=== PATIENT | male | born 1950 | race Caucasian/White ===

== ENCOUNTER 2016-12-30 21:56 | Observation (INO) | payer MEDICARE, OTHER ==
--- NOTE | ~2016-12-30 | EKG ---
PATIENT: LUIS ANTONIO HOLT UNIT #: [id number] Ventricular Rate: 102 BPM Atrial Rate: 102 BPM P-R Interval: 182 ms QRS Duration: 84 ms Q-T Interval: 344 ms QTC Calculation(Bezet): 448 ms P [place]: 49 degrees Calculated R [place]: 46 degrees Calculated T [place]: 47 degrees Diagnosis Line: Sinus tachycardia Diagnosis Line: Low voltage QRS Diagnosis Line: Borderline ECG Diagnosis Line: When compared with ECG of 09-FEB-2015 17:25, Diagnosis Line: T wave inversion no longer evident in Inferior Diagnosis Line: leads Diagnosis Line: Confirmed by VICKIE AGEE MD ([id number]) on Diagnosis Line: 12/31/2016 4:30:23 PM INTERPRETING MD: ANUEL ALMAZAN
--- NOTE | ~2016-12-30 | HP ---
Unit #: [id number] #: [id number] Patient: LUIS ANTONIO HOLT [id number] [address] [address] [id number] I MR#: [id number] NAME: LUIS ANTONIO HOLT. ROOM: [id number] Age: 66 Sex: M Admission Date: 12/31/2016 : 1950 Attending Physician: Isidoro Winchester M.D. Primary Care Physician: No Primary Care Physician HISTORY AND PHYSICAL ADMITTING DIAGNOSIS Hypotension. FURTHER DIAGNOSES 1. Allergic reaction to monosulfate in the food. 2. Hypotension. 3. Acute kidney injury. 4. Hyponatremia. HISTORY OF PRESENTING ILLNESS The patient is a 66-year-old male with a past medical history of atrial fibrillation on metoprolol, not on any anticoagulation, history of anxiety, hyperlipidemia, presented to the hospital after he had surgery on the left foot. He had MAC anesthesia and he went home. He had some food which he thinks has monosulfates to which he is allergic and later started to develop hypotension, dizziness and throat swelling. He presented to the emergency room. In the emergency room, initial blood pressure was in the seventies. He was started on steroids and IV fluids. His blood pressures improved. Initial workup showed a sodium of 124. creatinine was 2.1. He mentions his labs two weeks ago were essentially normal. He was recommended to be admitted last night and we are trying to admit him. He refuses to be admitted. PAST MEDICAL HISTORY History of AFib, history of anxiety, hyperlipidemia. His other medical problems include hypertension. PAST SURGICAL HISTORY Right inguinal hernia repair, umbilical hernia repair, right foot surgery. SOCIAL HISTORY The patient denies any current smoking, alcohol or illicit drugs. The patient works in [employer]. FAMILY HISTORY Positive for colon cancer. He did have a colonoscopy three years ago and was supposed to get a repeat colonoscopy. ALLERGIES Possible food allergy to monosulfates. HOME MEDICATIONS He recollects Toprol. We do not know the rest of the medications. We will try to get a list of his home medications. Unit #: [id number] #: [id number] Patient: LUIS ANTONIO HOLT REVIEW OF SYSTEMS Complete review of systems done and negative except for what is mentioned in the HPI. PHYSICAL EXAMINATION GENERAL APPEARANCE: The patient is alert, oriented x3, lying in the bed, in no acute distress. VITAL SIGNS: Temperature 98.6. Pulse rate 84. Respirations 17. Blood pressure 130/80 now. The initial blood pressure when he presented to the emergency room was 72/46. HEENT: Normocephalic, atraumatic. No icterus. PERRLA. Extraocular muscles intact. NECK: Supple. No JVD. HEART: S1, S2. Regular rate and rhythm. CHEST: Bilateral equal air entry. Clear to auscultation. ABDOMEN: Soft, nontender. EXTREMITIES: No edema. Normal pulses. Right foot (1) gait. DIAGNOSTIC STUDIES LABORATORY: Glucose 175, BUN 23, creatinine 1.6. Yesterday, on admission, it was 2 and the last lab on him in 2014 was 1.5. Sodium 151, potassium 5, chloride 98, bicarb 23. WBC 1.1, hemoglobin 17.1, platelets 344. UA essentially normal. ASSESSMENT AND PLAN 1. Allergic reaction to food. I explained to him that he needs to avoid food containing sodium (2)____ sulfates. Now, the symptoms have resolved. 2. Hyponatremia. Initial sodium of 124. Sodium has improved now. 3. Acute kidney injury. His creatinine was high up to 2.1. The last creatinine I have here is 1.5 in 2014 but he mentions that he had recent blood work done which was essentially normal. I strongly recommended him to stay overnight, get some more IV fluids and monitor his renal function. He is very adamant to leave and he wants to leave against medical advice. I spoke with patient, his niece and his sister. I explained that it might be better if we hydrate him overnight and monitor. He is refusing and he is about to sign against medical advice. Dictated by Patrice Pulido TD: 12/31/2016 10:58 JOB #: [id number] Unit #: [id number] #: [id number] Patient: LUIS ANTONIO HOLT HISTORY AND PHYSICAL Page 1 of 1 X X HISTORY AND PHYSICAL
--- NOTE | ~2016-12-30 | CR71 ---
[facility] A Service of [facility] RADIOLOGY TEXT RESULTS PATIENT: LUIS ANTONIO HOLT LOCATION: [facility] [id number] : [birth year] UNIT #: [id number] AGE: [address]: Isidoro Winchester MD SEX: M ORDER DR: [id number] [facility] [address]. [place], [place] [address] [id number] I MR#: [id number] Acc #: [id number] NAME: LUIS ANTONIO HOLT. : 1950 SEX: M STUDY DATE/TIME: 12/30/2016 23:07 UNIT: [facility] ROOM: [id number] STUDY DESCRIPTION: CR Chest Single View Attending Physician: Erik Reyes M.D. Ordering Physician: Amee Russell M.D. Primary Care Physician: No Primary Care Physician MEDICAL IMAGING REPORT This report is preliminary unless electronic signature is present EXAM Single view chest INDICATIONS Shortness of air. Hypotension. FINDINGS Single portable AP view of the chest compared with 02/09/2015. Heart and mediastinal contours normal. Lungs are clear. No pleural effusion. IMPRESSION No acute cardiopulmonary findings. Dictated by... Riaz Worrell M.D. THIS IS AN ELECTRONICALLY VERIFIED REPORT Riaz Worrell M.D. at 12/31/2016 11:16 PM RPC/jacer TD: 12/31/2016 04:04 JOB #: [id number] MEDICAL IMAGING REPORT Page 1 of 1 COPY
--- NOTE | ~2016-12-30 | DS ---
Unit #: [id number] #: [id number] Patient: LUIS ANTONIO HOLT [id number] [address] [address] [id number] I MR#: [id number] NAME: LUIS ANTONIO HOLT. ROOM: 87852 Age: 66 Sex: M Admission Date: 12/31/2016 : 1950 Discharge Date: 12/31/2016 Attending Physician: Isidoro Winchester M.D. Primary Care Physician: No Primary Care Physician DISCHARGE SUMMARY Kindly note, he left against medical advice. ADMITTING DIAGNOSES 1. Hypotension. 2. Allergic reaction to food. 3. Hyponatremia. 4. Possible acute kidney injury. HISTORY OF PRESENT ILLNESS The patient is a 66-year-old man with a past medical history of atrial fibrillation, history of anxiety, (1) presenting to the hospital after he had allergic reaction to food with hypotension, dizziness, and throat swelling. In the emergency room, his symptoms had resolved. He did get steroids, IV fluids. His initial sodium was low up to 124. Creatinine was high up to 2.1. The creatinine came down to 1.6 and his sodium slowly improved. I spoke with patient and requested him to be admitted and he left against medical advice the same day. Unfortunately, we could not give him any medications. I strongly counseled him to come back to the emergency room if at all is not feeling well or if there is anything else going on with him. Dictated by... Patrice Pulido/danny TD: 01/03/2017 11:35 JOB #: [id number] DISCHARGE SUMMARY Page 1 of 1 X X DISCHARGE SUMMARY
[~2016-12-30 21:56] MED LIST: ANTACID MAXIM1000 MG PO; ASPIRIN325 M1 PO; CARDIZEM CD240 M1 PO; CHROMIUM PO; COD LIVER OIL473 ML PO; LIPITOR PO; NO MEDICATIONS; PERCOCET 7.5-31 EACH PO; PHILLIPS' MILK311 MG PO; POTASSIUM GLUCONATE PO; TOPROL XL PO; VIT D3 PO; VOLTAREN75 MG PO
[2016-12-30] MEDS ORDERED: METOPROLOL TAR25 MG PO (22:09)
[2016-12-30 23:58] LABS: BASOPHIL% 0.1 % (0-2.5); HEMATOCRIT 50.9 % (38.0-50.0); HEMOGLOBIN 17.1 gm/dL (13.0-16.0); LYMPHOCYTE# 0.4 X10e3 (1.0-3.5); LYMPHOCYTE% 5.2 % (17.0-45.0); MEAN CELL VOLUME 88.9 FL (83-96); MEAN CORPUSCULAR HEMOGLOBIN 29.8 PG (28-34); MEAN CORPUSCULAR HGB CONC 33.5 g/dL (30-36); MONOCYTE# 0.1 X10e3 (0-1.0); MONOCYTE% 1.2 % (3.0-12.0); NEUTROPHIL# 6.7 X10e3 (1.5-7.1); NEUTROPHIL% 93.5 % (40-75); PLATELET COUNT 344 X10e3 (140-420); RED BLOOD COUNT 5.72 X10e (3.90-5.60); RED CELL DISTRIBUTION WIDTH 14.2 % (11.0-15.5); WHITE BLOOD COUNT 7.1 X10e3 (4.0-10.5)
[2016-12-30 23:59] LABS: DIFF IND NO
[2016-12-31 00:12] LABS: INR 1.1; PROTHROMBIN TIME (PATIENT) 11.3 SECONDS (9.6-11.5)
[2016-12-31 00:26] LABS: ALBUMIN SERUM 3.9 g/dL (3.5-5.0); BILIRUBIN, DIRECT 0.1 mg/dL (0.0-0.2); BILIRUBIN,INDIRECT 0.9 mg/dL (0.0-0.9); BUN/CREATININE RATIO 10.5; CALCIUM SERUM 8.5 mg/dL (8.4-10.2); GLOM FILT RATE Estimated 33.5 mL/min (>60); POTASSIUM 3.8 mmol/L (3.5-5.1); PROTEIN TOTAL SERUM 7.8 g/dL (6.0-8.3)
[2016-12-31 00:41] LABS: POC - CKMB 1.2 ng/mL (0.0-7.9); POC - TROPONIN <0.05 ng/mL (<=0.05)
[2016-12-31 07:55] LABS: BUN/CREATININE RATIO 14.37; CALCIUM SERUM 8.5 mg/dL (8.4-10.2); CREATININE SERUM 1.6 mg/dL (0.6-1.4); GLOM FILT RATE Estimated 43.9 mL/min (>60)
== END 2016-12-31 10:10 | disposition left against medical advice (07) ==
LOC: CED 21:56 → CEDOF 12-31 01:08 → CED 12-31 01:08 → CEDOF 12-31 01:08 → CED 12-31 01:33 → CEDOF 12-31 01:33
PROVIDERS: Emergency Medicine; Internal Medicine
DX: T78.1XXA Other adverse food reactions, not elsewhere classified, initial encounter (principal); I95.89 Other hypotension; N17.9 Acute kidney failure, unspecified; E87.1 Hypo-osmolality and hyponatremia; Z80.0 Family history of malignant neoplasm of digestive organs; I48.91 Unspecified atrial fibrillation; E78.5 Hyperlipidemia, unspecified
CPT/HCPCS: 36415; 71010; 80048; 80076; 82553; 84443; 84484; 85025; 85610; 93005; 96361; 96374; 96375; 99285; G0378; J1200; J2920; J2930